=== PATIENT | female | born 1980 | race Two or more races ===

== ENCOUNTER → 2025-09-01 | Emergency (ER) | payer OTHER ==
[~2025-09-01] VITALS: Ht 167.6 cm; Wt 68.9 kg
[~2025-09-01] MED LIST: DEXAMETHASONE SODIUM PHOSPHATE 4 MG/ML VIAL IM ONE; DICLOFENAC SODI50 MG PO; KETOROLAC TROMETHAMINE 30 MG VIAL IM ONE; MEDROLPACK PO; NORFLEX100MG PO; ORPHENADRINE CITRATE 30 MG/ML AMPUL IM ONE
== END | disposition home or self-care (01) ==
LOC: ER 18:58
DX: M54.59 Other low back pain (principal)